=== PATIENT | male | born 1985 | race Caucasian/White ===

== ENCOUNTER 2017-11-26 08:45 | Day surgery (SDC) | payer BC ==
[2017-11-20 09:34] VITALS: BMI 35.4
[~2017-11-26 08:45] MED LIST: LACTATED RINGERS 1,000 ML IV SCH; LIDOCAINE 1% 20 ML VIAL (10MG/ML) FOR IV START INTRADERMA PRN
[2017-11-26 09:29] VITALS: TEMP 97.8
[2017-11-26] MEDS ORDERED: PROPOFOL 10 MG/ML 20 ML VIAL IV ONE (10:15)
[2017-11-26] MEDS ORDERED: LIDOCAINE 1% INJ 10MG/ML (20 ML MDV) ONE (10:15)
[2017-11-26] MEDS ORDERED: fentaNYL (PF) 50 MCG/ML 2 ML AMP ONE (10:15)
[2017-11-26] MEDS ORDERED: MIDAZOLAM 2 MG/2 ML VIAL ONE (10:15)
[2017-11-26] MEDS ORDERED: IV FLUID CONTINUATION 1,000 ML IV ONE (10:35)
--- NOTE | 2017-11-26 10:42 | P.PCN ---
Date of Procedure: 11/26/17 Procedure(s) Performed: Procedure: Esophagogastroduodenoscopy and biopsy. Preoperative diagnosis: Chronic reflux symptoms including nocturnal reflux and cough despite medical therapy. Postoperative diagnosis: 1. Small sliding hiatal hernia with LA grade B distal esophagitis. 2. Mild antral gastritis. 3. Multiple biopsies obtained from the duodenum, antrum and esophagus. Preparation and sedation: Was provided by anesthesia. Brief clinical history: The patient is a 32-year-old male with history of chronic reflux symptoms that he did not seek medical attention for over the years. He has required treatment earlier this year and ran out of his medications 3 months later. His symptoms have recurred off medication and was restarted on omeprazole around 2 weeks ago. He continues to have acid reflux and nocturnal symptoms including cough despite treatment at this time. This evaluation was requested to assess his esophagitis and to rule out complicated reflux disease or other pathology. Procedure: With the patient on his left lateral decubitus position and after informed consent and adequate sedation, I passed the Olympus-GIF 160 video upper endoscope through the cricopharyngeus down the esophagus. GE junction was around 38-39 cm from the incisors and there was a small sliding hiatal hernia around 1 cm in size. The distal esophagus showed few short erosions consistent with LA grade B distal esophagitis. There were no strictures or any evidence of Isbell's esophagus. The endoscope was then passed into the stomach which was insufflated with air and inspected in detail including the retroflex view in the cardia. There was some mottling and erythema in the antrum but no ulcers or erosions. Pyloric channel, duodenal bulb, post bulbar area and descending duodenum appeared within normal limits. Because of his symptoms, I obtained biopsies from the duodenum, antrum and esophagus then the endoscope was withdrawn. The patient tolerated the procedure well. Plan: The patient was reassured. Will continue antireflux diet and measures and acid suppressive therapy. Further plans based on his course and biopsy results. He will follow up with you as planned and I will be happy to see in the office and comanage his problem if he continues to be symptomatic.
[2017-11-26 11:05] VITALS: BP 145/89; PULSE 66; RESP 16
== END 2017-11-26 11:26 | disposition home or self-care (01) ==
LOC: ORWHC2ENDO 08:45
DX: K21.0 Gastro-esophageal reflux disease with esophagitis (principal); K29.50 Unspecified chronic gastritis without bleeding; K44.9 Diaphragmatic hernia without obstruction or gangrene; Z79.899 Other long term (current) drug therapy
CPT/HCPCS: 43239; J2250; J2001; J3010; J2704; 88305

== ENCOUNTER 2018-01-11 11:21 | Emergency (ER) | payer BC ==
[2018-01-11 11:25] VITALS: BP 146/80; PULSE 82; RESP 18; TEMP 97.6
[2018-01-11] MEDS ORDERED: MAG HYDROX/AL HYDROX/SIMETH 30 ML, HYOSCYAMINE ELIXIR 10 ML, CIMETIDINE HCL 300 MG, LID... PO STA ×4 (11:41)
--- NOTE | 2018-01-11 12:35 | XR ---
EXAMINATION TYPE: XR soft tissue neck , 2 VIEWS DATE OF EXAM ORDERED: 01/11/2018 HISTORY: Pain. COMPARISON: None. FINDINGS: Prevertebral soft tissues are normal. The epiglottis is unremarkable. IMPRESSION: NORMAL SOFT TISSUE VIEWS OF THE NECK.
--- NOTE | 2018-01-11 12:45 | ED ---
General Adult HPI - General Chief complaint: ENT Stated complaint: Throat Pain-post op pain Time Seen by Provider: 01/11/18 11:27 Source: patient, RN notes reviewed Mode of arrival: ambulatory Limitations: no limitations - History of Present Illness Initial comments: 32-year-old male presents emergency Department chief complaint of throat discomfort, gastric reflux. Patient states that he had a recent scope by Dr. Ordaz was told that he has esophagitis, gastritis and I will hernia. Patient states that symptoms are worsening since then. He states he says he lays down he coughs, feels there is voices worsening is a burning sensation in his throat. Patient only takes omeprazole 20 mg once a day he states he has not been on any other Medications for this. Patient denies any abdominal pain no diarrhea no constipation. - Related Data Previous Rx's Medication Instructions Recorded Omeprazole [PriLOSEC] 20 mg PO AC-BID 14 Days cap 11/03/15 Omeprazole 40 mg PO DAILY #30 capsule. 01/11/18 Sucralfate [Carafate] 1 gm PO BID #30 tablet 01/11/18 Allergies Allergy/AdvReac Type Severity Reaction Status Date / Time No Known Allergies Allergy Verified 01/11/18 11:26 Review of Systems ROS Statement: Those systems with pertinent positive or pertinent negative responses have been documented in the HPI. ROS Other: All systems not noted in ROS Statement are negative. Past Medical History Past Medical History: GERD/Reflux Additional Past Medical History / Comment(s): hiatal hernia History of Any Multi-Drug Resistant Organisms: None Reported Past Surgical History: No Surgical Hx Reported Additional Past Anesthesia/Blood Transfusion Reaction / Comment(s): NO PRIOR SX HX Past Psychological History: No Psychological Hx Reported Smoking Status: Never smoker Past Alcohol Use History: Occasional Past Drug Use History: None Reported - Past Family History Mother Family Medical History: No Reported History General Exam Limitations: no limitations General appearance: alert, in no apparent distress ENT exam: Present: normal exam, normal oropharynx, mucous membranes moist Neck exam: Present: normal inspection. Absent: tenderness, meningismus, lymphadenopathy Respiratory exam: Present: normal lung sounds bilaterally. Absent: respiratory distress, wheezes, rales, rhonchi, stridor Cardiovascular Exam: Present: regular rate, normal rhythm, normal heart sounds. Absent: systolic murmur, diastolic murmur, rubs, gallop, clicks GI/Abdominal exam: Present: soft, tenderness (Mild epigastric), normal bowel sounds. Absent: distended, guarding, rebound, rigid Course Vital Signs 01/11/18 11:21 Temperature 97.6 F Pulse Rate 82 Respiratory 18 Rate Blood Pressure 146/80 O2 Sat by Pulse 96 Oximetry - Reevaluation(s) Reevaluation #1: 01/11/18 12:57 Patient felt improved at GI cocktail Medical Decision Making - Medical Decision Making 32-year-old male presented for reflux. Patient was improved after GI cocktail. Patient will be increased on omeprazole to 40 mg and started on Carafate. Patient follow-up with Dr. Ordaz return for any worsening symptoms. Disposition Clinical Impression: GERD (gastroesophageal reflux disease), Esophagitis Disposition: HOME SELF-CARE Condition: Stable Instructions: Diet for Stomach Ulcers and Gastritis (ED), Gastroesophageal Reflux Disease (ED) Additional Instructions: Please return to the Emergency Department if symptoms worsen or any other concerns. Prescriptions: Omeprazole 40 mg PO DAILY #30 capsule. Sucralfate [Carafate] 1 gm PO BID #30 tablet Is patient prescribed a controlled substance at d/c from ED?: No Referrals: Glendy Cross DO [Primary Care Provider] - 1-2 days Marek De La Garza MD [STAFF PHYSICIAN] - 1-2 days
== END 2018-01-11 13:11 | disposition home or self-care (01) ==
LOC: EC 11:21
DX: K21.0 Gastro-esophageal reflux disease with esophagitis (principal)
CPT/HCPCS: 70360; 99283